=== PATIENT | female | born 1935 | race Caucasian/White ===

== ENCOUNTER 2017-06-21 13:48 | Observation (INO) ==
--- NOTE | 2017-06-21 15:01 | Emergency Department Note ---
Disposition Clinical Impression: Dyspnea Disposition: Home, Self-Care Condition: Good Referrals: Isaac Banegas MD [Primary Care Provider] - Forms: ED Satisfaction Letter SOB HPI - General Chief Complaint: ED Shortness of Breath/Dyspnea Stated Complaint: SOB Time Seen by Provider: 06/21/17 14:46 Source: patient, family Limitations: no limitations Nursing Notes Reviewed: Yes Vital Signs Reviewed: Yes - History of Present Illness Mrs. Jones, an 81yo female, presents from home by POV for evaluation of dyspnea. Patient was at a retinal specialist this morning and was dyspneic and hypertensive. Specialist recommended she present to the emergency department by squad. Patient drove herself home. She then called her primary care physician, Dr. Tellez, who recommended she present to the emergency department for continued evaluation. Patient's symptoms of dyspnea and bilateral lower extremity swelling have been progressive for the past 2-4 weeks. During this time, her atenolol and diuretic have been reduced by her PCP secondary to suspected hypotension. Patient also notes intense self-resolved left calf pain this morning. ROS: Positive: Dyspnea, bilateral lower extremity swelling Negative: Fever, chills, nausea, vomiting, weakness, cough, chest pains, palpitations, back pains, confusion. History of long-term tobacco smoking. Quit September 2016. No home oxygen use. No home metered-dose inhaler or nebulizer. - Related Data Home Medications Medication Instructions Recorded Confirmed ALPRAZolam [Xanax 0.5 MG Tablet] 0.5 mg PO TID 09/04/15 09/04/15 Albuterol Sulfate [Ventolin Hfa] 2 puff IH Q4H 09/04/15 09/04/15 Aspirin 325 mg PO DAILY 09/04/15 09/04/15 Atenolol [Tenormin] 25 mg PO DAILY 09/04/15 09/04/15 Brimonidine 0.2% [Alphagan] 1 drop BOTH EYES BID 09/04/15 09/04/15 Cholecalciferol (Vitamin D3) 2,000 unit PO DAILY 09/04/15 09/04/15 [Vitamin D] Cyclobenzaprine [Flexeril] 10 mg PO TID 09/04/15 09/04/15 Dorzolamide/Timolol [Cosopt] 1 drop LEFT EYE BID 09/04/15 09/04/15 Fluconazole [Diflucan] 150 mg PO 2XW 09/04/15 09/04/15 L. Acidophilus/Pectin, [place] 300 mg PO DAILY 09/04/15 09/04/15 [Acidophilus Probiotic Capsule] Latanoprost [Xalatan] 1 drop BOTH EYES HS 09/04/15 09/04/15 Methenamine Hippurate [Hiprex] 1 gm PO DAILY 09/04/15 09/04/15 Nitrofurantoin [Macrodantin] 50 mg PO HS 09/04/15 09/04/15 Omeprazole [PriLOSEC] 20 mg PO DAILY 09/04/15 09/04/15 Simvastatin [Zocor] 20 mg PO HS 09/04/15 09/04/15 Allergies Allergy/AdvReac Type Severity Reaction Status Date / Time Sulfa (Sulfonamide Allergy Hives Verified 06/21/17 13:57 Antibiotics) Penicillins AdvReac Redness of Verified 06/21/17 13:57 Skin prednisone AdvReac Watery Eye Verified 06/21/17 13:57 All systems ED: reviewed and negative except as stated. Past Medical History - Past Medical History Medical history: Reports: COPD Surgical history: Reports: appendectomy, cholecystectomy, hysterectomy Psychiatric history: Reports: no psych history - Social History Smoking Status: Current every day smoker Smokeless Tobacco Status: No Alcohol use: Reports: rarely Drug use: Reports: none Physical Exam Vital Signs Reviewed General: Patient is alert, oriented, and in no acute distress. HEENT: No facial asymmetry. Head is normocephalic and atraumatic. PERRLA. Nasal turbinates moist and pink. Posterior pharynx without exudates or cobblestoning. Cardiovascular: Heart regular rate and rhythm without clicks, rubs, gallops, or murmurs. No JVD. PMI nondisplaced. Respiratory: Symmetric chest rise with good respiratory effort. Decreased breath sounds right lower lobe and right middle lobe. Left-sided breath sounds clear without wheezes, rales, or rhonchi. Abdomen: Bowel sounds present normoactive x-4 quadrants. Abdomen is soft, nondistended, and nontender. No organomegaly noted. Psych: Patient's affect is appropriate for situation. - General Limitations: no limitations General appearance: alert Course Course Narrative: Clinical concern is for pneumonia versus congestive heart failure versus possible PE. We will IV fluid hydrate and CTA chest. Chest x-ray unremarkable. CTA shows no PE and no pneumonia; suspicious for inflammatory bronchiolitis. Serum hematology is unremarkable. Serum chemistry shows mild hypernatremia of 146, mild hypercalcemia of 112. Creatinine is elevated at 1.24 which is consistent with her chronic baseline. BNP is 249 which, no elevated, is nondiagnostic for congestive heart failure. Patient does not have clinical pulmonary edema. Discussed admission with the patient for exertional dyspnea (as an anginal equivalent). 17:55 Hospitalist recommending ABG and albuterol prior to his consideration for admission. Chest X-Ray 06/21/17 13:57 IMPRESSION: 1. No acute cardiopulmonary disease. 2. COPD. D/ / Bimal Plunkett MD / Bimal Plunkett MD Interpreting Provider: Bimal Plunkett MD Chest CTA 06/21/17 15:04 IMPRESSION: 1. No pulmonary embolus is identified. 2. Subtle ground-glass centrilobular nodularity is identified. If the patient is an active smoker, respiratory bronchiolitis may be considered. Otherwise, an infectious or inflammatory bronchiolitis may be the cause. D/ / Javier Gerard / Javier Gerard Interpreting Provider: Javier Gerard Vital Signs Temperature 97.5 F L 06/21/17 13:52 Pulse Rate 66 06/21/17 13:52 Respiratory Rate 20 06/21/17 13:52 Blood Pressure 151/78 06/21/17 13:52 O2 Sat by Pulse Oximetry 99 06/21/17 13:52 Temperature 97.5 F L 06/21/17 13:52 Pulse Rate 66 06/21/17 13:52 Respiratory Rate 20 06/21/17 18:09 Blood Pressure 151/78 06/21/17 13:52 O2 Sat by Pulse Oximetry 99 06/21/17 18:09 Oxygen Delivery Oxygen Delivery Room Air Shortness of Breath/Dyspnea - Medical Records Medical records reviewed: Yes I reviewed the patient's medical records. - Lab Data Lab results reviewed: Yes I reviewed the patient's lab results. Result diagrams: 06/21/17 15:27 06/21/17 15:27 Lab Results 06/21/17 06/21/17 06/21/17 Range/Units 15:27 15:27 15:27 WBC 8.0 (4.3-11.1) K/mcL RBC 4.97 (3.82-4.97) M/mcL Hgb 13.9 (11.5-15.4) g/dL Hct 45.3 H (35.3-44.9) % MCV 91.1 (83.0-100.0) fL MCH 28.0 (28.0-33.3) pg MCHC 30.7 L (31.6-35.5) g/dL RDW 13.6 (11.5-14.5) % Plt Count 214 (140-400) K/mcL MPV 10.6 (9.4-12.4) fL Immature Gran % 0.2 (0-4) % Seg Neutrophils % 71.4 % Lymphocytes % 21.2 % Monocytes % 5.1 % Eosinophils % 1.9 % Basophils % 0.2 % Neutrophils # 5.7 (1.6-8.9) K/mcL Lymphocytes # 1.7 (0.6-4.6) K/mcL Monocytes # 0.4 (0.0-1.3) K/mcL Eosinophils # 0.2 (0.0-0.6) K/mcL Basophils # 0.0 (0.0-0.2) K/mcL ABG pH (7.32-7.45) pH Units ABG pCO2 (35-45) mmHg ABG pO2 (85-104) mmHg ABG HCO3 (21-27) mEQ/L ABG Total CO2 (20-26) mEq/L ABG O2 Saturation (95-98) % ABG Base Excess (-2.0 to 3.0) mEq/L Blood Gas Modality Inspired O2 % Sodium 146 H (136-145) mEq/L Potassium 4.3 (3.5-4.5) mEq/L Chloride 112 H (98-109) mEq/L Carbon Dioxide 26 (19-29) mEq/L BUN 14 (7-20) mg/dL Creatinine 1.24 H (0.57-1.11) mg/dL Est GFR ( Amer) 50 L (> 60) Est GFR (Non-Af Amer) 42 L (> 60) BUN/Creatinine Ratio 11 (6-26) Glucose 82 (70-99) mg/dL Calculated Osmolality 302 H (280-300) Calcium 9.5 (8.6-10.8) mg/dL Troponin I 0.00 (0-0.03) ng/mL B-Natriuretic Peptide (0-100) pg/mL 06/21/17 06/21/17 Range/Units 15:27 18:05 WBC (4.3-11.1) K/mcL RBC (3.82-4.97) M/mcL Hgb (11.5-15.4) g/dL Hct (35.3-44.9) % MCV (83.0-100.0) fL MCH (28.0-33.3) pg MCHC (31.6-35.5) g/dL RDW (11.5-14.5) % Plt Count (140-400) K/mcL MPV (9.4-12.4) fL Immature Gran % (0-4) % Seg Neutrophils % % Lymphocytes % % Monocytes % % Eosinophils % % Basophils % % Neutrophils # (1.6-8.9) K/mcL Lymphocytes # (0.6-4.6) K/mcL Monocytes # (0.0-1.3) K/mcL Eosinophils # (0.0-0.6) K/mcL Basophils # (0.0-0.2) K/mcL ABG pH 7.36 (7.32-7.45) pH Units ABG pCO2 42 (35-45) mmHg ABG pO2 70 L (85-104) mmHg ABG HCO3 23.7 (21-27) mEQ/L ABG Total CO2 25.0 (20-26) mEq/L ABG O2 Saturation 93 L (95-98) % ABG Base Excess -1.7 (-2.0 to 3.0) mEq/L Blood Gas Modality RA Inspired O2 21 % Sodium (136-145) mEq/L Potassium (3.5-4.5) mEq/L Chloride (98-109) mEq/L Carbon Dioxide (19-29) mEq/L BUN (7-20) mg/dL Creatinine (0.57-1.11) mg/dL Est GFR ( Amer) (> 60) Est GFR (Non-Af Amer) (> 60) BUN/Creatinine Ratio (6-26) Glucose (70-99) mg/dL Calculated Osmolality (280-300) Calcium (8.6-10.8) mg/dL Troponin I (0-0.03) ng/mL B-Natriuretic Peptide 249 H (0-100) pg/mL - Radiology Data Radiology results reviewed: Yes I reviewed the patient's radiology results. - EKG Data EKG attestation: Yes I reviewed and interpreted this EKG. EKG results narrative: EKG dated 06/21/17 at 13:59 interpreted as sinus rhythm with rate of 65. Normal intervals. Normal axis. Attestation Statement - Attestation Attestation: I examined this patient and my medical decision-making was reviewed with the Resident Physician. I agree with the documented findings, disposition and treatment plan as described except to the extent set forth below. Patient with exertional dyspnea. Will be admitted for anginal once. EKG shows no acute findings at this time. We will admit for trending of cardiac biomarkers. CT scan of the chest shows non-specific infectious findings. Hospital is requesting "DuoNeb as well as check ABG.
[2017-06-21 15:34] LABS: Basophils % 0.2 %; Eosinophils # 0.2 K/mcL (0.0-0.6); Eosinophils % 1.9 %; Hematocrit 45.3 % (35.3-44.9); Hemoglobin 13.9 g/dL (11.5-15.4); Immature Granulocytes % 0.2 % (0-4); Lymphocytes # 1.7 K/mcL (0.6-4.6); Lymphocytes % 21.2 %; Mean Corpuscular HGB Conc 30.7 g/dL (31.6-35.5); Mean Corpuscular Volume 91.1 fL (83.0-100.0); Mean Platelet Volume 10.6 fL (9.4-12.4); Monocytes # 0.4 K/mcL (0.0-1.3); Monocytes % 5.1 %; Neutrophils # 5.7 K/mcL (1.6-8.9); Platelet Count 214 K/mcL (140-400); Red Blood Count 4.97 M/mcL (3.82-4.97); Red Cell Distribution Width 13.6 % (11.5-14.5); Segmented Neutrophils % 71.4 %
[2017-06-21 15:46] LABS: Calcium 9.5 mg/dL (8.6-10.8); Potassium 4.3 mEq/L (3.5-4.5)
[2017-06-21] MEDS ORDERED: Albuterol 2.5 MG/3 ML NEBULIZER IH ONE (17:55)
[2017-06-21] MEDS ORDERED: Ipratropium/Albuterol Neb 3 ML IH ONE (17:57)
[2017-06-21 18:15] LABS: ABG Base Excess -1.7 mEq/L (-2.0 to 3.0); ABG HCO3 23.7 mEQ/L (21-27); ABG Oxygen Saturation 93 % (95-98); ABG PCO2 42 mmHg (35-45); ABG PH 7.36 pH Units (7.32-7.45); ABG PO2 70 mmHg (85-104)
[2017-06-21 18:17] LABS: Blood Gas FiO2 21 %
--- NOTE | 2017-06-21 23:31 | Internal Med History&Physical ---
Date of Encounter: 06/22/17 Time of Encounter: 23:28 Assessment and Plan (1) Dyspnea Current visit: Yes Status: Acute - CTA: no pulmonary embolism - hypoxia on ABG - on my bedside assessment, O2 sat is 97% at rest - With 40+ PY tobacco use, I suspect COPD as a cause of hypoxia or dyspnea without exacerbation at this time. Considering LE swelling when off of diuretic and long standing hypertension, HF cannot be ruled out completely despite BNP of 249. Also, pulm HTN is also a possibility. - check ambulatory pulse ox - check serial troponin - OP PFTs - IP TTE assess LVEF, diastolic function, r/o pulm HTN Qualifiers: Dyspnea type: shortness of breath Qualified Code(s): R06.02 - Shortness of breath; R06.00 - Dyspnea, unspecified; R06.01 - Orthopnea (2) Hypoxia Current visit: Yes Status: Acute as above (3) HTN (hypertension) Current visit: Yes Status: Acute BP is now high, so will resume HCTZ and increase atenolol to prior dose of 25 mg daily - Resume HCTZ 12.5 mg daily - Increase atenolol back to 25 mg daily - check orthostatic vitals Qualifiers: Hypertension type: essential hypertension Qualified Code(s): I10 - Essential (primary) hypertension Internal Medicine - H&P: HPI Chief complaint: dyspnea Admitted From: Emergency Dept Plans for Post Hospital Care: Home History of present illness: 81W with no diagnosed cardiac or pulmonary probem has presented from eye doctor' s office due to dyspnea, exertional dyspnea and lower extremity swelling of gradual onset for several days. No chest pain, palpitations. Of note, her home atenolol was decreased in half to 12.5 mg daily and HCTZ was stopped recently due to low blood pressure with systolic in 90's by PCP. Occasional headache. Alternating diarrhea and constipation. A 10-point ROS is otherwise negative. PMH: - HTN - IBS - Depression, since losing her son to intracranial hemorrhage due to aneurysm - Glaucoma - CKD3, baseline Cr 1.2 SH: 40+PY of cigarette smoking, currently e-cigarettes Past Med Surg Social Fam HX - Past Medical History Psychiatric history: no psych history - Past Surgical History Surgical History: appendectomy, cholecystectomy, hysterectomy - Social History Smoking Status: Current every day smoker Packs per day: 1 Smokeless Tobacco Status: No Alcohol use: rarely Drug use: none - Family History Mother Living Status: Age at : 63 Cause of : Emphysema Hx Family Cardiac Disorders: Yes Hx Family Respiratory Disorders: Yes (Emphysema) Father Living Status: Age at : 77 Cause of : Kidney failure Hx Family Endocrine Disorder: Yes Son Living Status: Age at : 55 Cause of : Brain Aneurysm Hx Family Cardiac Disorders: Yes (HTN) Internal Medicine - H&P: Meds ALPRAZolam [Xanax 0.5 MG Tablet] 0.5 mg PO TID 09/04/15 [History] Aspirin 325 mg PO DAILY 09/04/15 [History] Atenolol [Tenormin] 25 mg PO DAILY 09/04/15 [History] Brimonidine 0.2% [Alphagan] 1 drop BOTH EYES BID 09/04/15 [History] Cyclobenzaprine [Flexeril] 10 mg PO TID 09/04/15 [History] Dorzolamide/Timolol [Cosopt] 1 drop LEFT EYE BID 09/04/15 [History] Latanoprost [Xalatan] 1 drop BOTH EYES HS 09/04/15 [History] Omeprazole [PriLOSEC] 20 mg PO DAILY 09/04/15 [History] Simvastatin [Zocor] 20 mg PO HS 09/04/15 [History] Estrogens, Conjugated [Premarin Cream] 1 appl VG 2XW 06/21/17 [History] hydroCHLOROthiazide [Hydrochlorothiazide] 12.5 mg PO DAILY 06/21/17 [History] 3 Allergy/AdvReac Type Severity Reaction Status Date / Time Sulfa (Sulfonamide Allergy Hives Verified 06/21/17 13:57 Antibiotics) Penicillins AdvReac Redness of Verified 06/21/17 13:57 Skin prednisone AdvReac Watery Eye Verified 06/21/17 13:57 All Systems PM: A 10-system review of systems was performed and is negative for pertinent findings except as documented above in the HPI. - Constitutional Vitals: Temp Pulse Resp BP Pulse Ox 97.7 F 66 15 156/76 98 06/21/17 23:07 06/21/17 23:07 06/21/17 23:07 06/21/17 23:07 06/21/17 23:07 General appearance: Present: A&O X 3, pleasant, no acute distress - Head Head exam: Present: atraumatic, normocephalic - Eye Eye exam: Present: PERRL, conjuntiva pink, sclera anicteric Pupils: Present: PERRL - Neck Neck exam general surgery: Present: supple, trachea midline. Absent: nuchal rigidity - Respiratory Respiratory exam: Present: CTAB. Absent: accessory muscle use, rales, rhonchi, wheezes - Cardiovascular Cardiovascular exam: Present: RRR, +S1, +S2. Absent: diastolic murmur, gallop, rubs, systolic murmur - GI/Abdominal GI/Abdominal exam: Present: normal bowel sounds, soft, no peritoneal signs. Absent: distended, guarding, rebound, tenderness - Extremities Exam Extremities exam: Present: pedal edema (1+ bilaterally), warm, radial pulses palpable and symmetrical. Absent: calf tenderness, cyanotic - Neurological Exam Neurological exam: Present: CN II-XII intact, oriented X3, no focal deficits. Absent: facial droop, speech deficit - Skin Skin exam: Present: dry, intact, normal color Internal Med - H&P Results - Labs CBC & Chem 7: 06/21/17 15:27 06/21/17 15:27 - EKG Data -: EKG Interpreted by Myself (Sinus 65 bpm, no acute ischemic changes)
[2017-06-22] MEDS ORDERED: Naloxone 0.4 MG/ML INJ IVP PRN (00:08)
[2017-06-22] MEDS ORDERED: Acetaminophen 325 MG TABLET PO PRN (00:08)
[2017-06-22] MEDS: Dorzolamide/Timolol OPTH 10 ML BOTTLE LEFT EYE SCH ×3 (00:39→20:20)
[2017-06-22] MEDS: Latanoprost 2.5 ML BOTTLE BOTH EYES SCH ×2 (00:39→20:30)
--- NOTE | 2017-06-22 01:45 | Event Note ---
Date of Encounter: 06/21/17 Time of Encounter: 23:30 The correct date of my admission H&P encounter is 06/21/17.
[2017-06-22 02:11] LABS: Basophils % 0.2 %; Eosinophils # 0.1 K/mcL (0.0-0.6); Eosinophils % 1.4 %; Hematocrit 35.4 % (35.3-44.9); Immature Granulocytes % 0.3 % (0-4); Lymphocytes # 1.6 K/mcL (0.6-4.6); Lymphocytes % 16.4 %; Mean Corpuscular HGB Conc 31.4 g/dL (31.6-35.5); Mean Corpuscular Volume 89.2 fL (83.0-100.0); Mean Platelet Volume 11.3 fL (9.4-12.4); Monocytes # 0.6 K/mcL (0.0-1.3); Neutrophils # 7.3 K/mcL (1.6-8.9); Platelet Count 202 K/mcL (140-400); Red Blood Count 3.97 M/mcL (3.82-4.97); Red Cell Distribution Width 13.4 % (11.5-14.5); Segmented Neutrophils % 75.7 %
[2017-06-22 02:12] LABS: Hemoglobin 11.1 g/dL (11.5-15.4)
[2017-06-22 02:25] LABS: BUN/Creatinine Ratio 14 (6-26); Blood Urea Nitrogen 14 mg/dL (7-20); Calcium 8.8 mg/dL (8.6-10.8); Carbon Dioxide 24 mEq/L (19-29); Chloride 113 mEq/L (98-109); Glucose 95 mg/dL (70-99); Magnesium 1.7 mg/dL (1.6-2.6); Osmolality,Calculated 294 (280-300); Potassium 3.6 mEq/L (3.5-4.5); Sodium 142 mEq/L (136-145); eGFR For African Americans > 60 (> 60); eGFR For Non-African Americans 55 (> 60)
[2017-06-22] MEDS: hydroCHLOROthiazide 25 MG TABLET PO SCH (08:12)
[2017-06-22] MEDS: ALPRAZolam 0.5 MG TABLET PO SCH ×3 (08:12→20:13)
[2017-06-22] MEDS: Aspirin 325 MG TABLET PO SCH (08:12)
--- NOTE | 2017-06-22 10:31 | Electrocardiograph Report ---
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
--- NOTE | 2017-06-22 16:49 | Internal Med Progress Note ---
Date of Encounter: 06/22/17 Time of Encounter: 14:30 - Assessment and plan (1) Dyspnea Current Visit: Yes Status: Acute Assessment and plan: Pt appears to be mildly dyspneic with conversation. She also reports mild SOB with exertion when walking to the bathroom. Pt is not requiring supplemental 02. She states that she was sent by her technical illustrator for visible dyspnea at his office. Chest Xray is negative, COPD. Chest CTA notes no PE and subtle ground glass nodularity, possible infectious or inflammatory bronchiolitis may be the cause. Echo showed an LVEF of 65-70% with normal systolic function, moderate diastolic dysfunction of the left ventricle, probably mild tricuspid regurgitation, and mild pulmonary hypertension. 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 Qualifiers: Dyspnea type: shortness of breath Qualified Code(s): R06.02 - Shortness of breath; R06.00 - Dyspnea, unspecified; R06.01 - Orthopnea (2) Hypoxia Current Visit: Yes Status: Acute Assessment and plan: Plan as above (3) HTN (hypertension) Current Visit: Yes Status: Chronic Assessment and plan: Patient has been off her medications, resume HCTZ 12.5 mg daily and atenolol 25 mg by mouth daily. 10 use and monitor vital signs. Qualifiers: Hypertension type: essential hypertension Qualified Code(s): I10 - Essential (primary) hypertension (4) DVT prophylaxis Current Visit: Yes Status: Acute Assessment and plan: JOHN dexter and pt is ambulatory. - Time Spent With Patient less than 15 minutes - Subjective Interval history: Pt was seen and assessed at 1430. She denies chest pain, but still appears to be mildly SOB with conversation. She states that she is able to get up and walk , but has dyspnea when she does go to the bathroom. She denies cough or fever, and reports some LE edemea and has been off of her diuretic. She is not requiring supplemental 02 at this time and speaks in long phrases. - Constitutional Vitals: Temp Pulse Resp BP Pulse Ox 97.9 F 66 16 144/71 97 06/22/17 14:59 06/22/17 14:59 06/22/17 14:59 06/22/17 14:59 06/22/17 14:59 General appearance: Present: A&O X 3, pleasant, no acute distress, answers questions appropriately - Head Head exam: Present: atraumatic, normal inspection, normocephalic - Eye Eye exam: Present: normal appearance, conjuntiva pink, sclera anicteric - ENT ENT exam: Present: mucous membranes moist, normal exam, normal external ear exam - Neck Neck exam general surgery: Present: normal inspection, supple, trachea midline. Absent: lymphadenopathy, tenderness - Respiratory Respiratory exam: Present: CTAB. Absent: accessory muscle use, chest wall tenderness, rales, respiratory distress, rhonchi, stridor, wheezes - Cardiovascular Cardiovascular exam: Present: RRR, +S1, +S2. Absent: diastolic murmur, gallop, rubs, systolic murmur - GI/Abdominal GI/Abdominal exam: Present: normal bowel sounds, soft. Absent: distended, hepatomegaly, tenderness - Extremities Exam Extremities exam: Present: normal inspection, warm, radial pulses palpable and symmetrical. Absent: calf tenderness, cyanotic, pedal edema - Neurological Exam Neurological exam: Present: alert, oriented X3, no focal deficits, pronater drift. Absent: facial droop, speech deficit - Skin Skin exam: Present: dry, intact, normal color, warm. Absent: rash Internal Medicine: Result - Labs CBC & Chem 7: 06/22/17 01:23 06/22/17 01:23 Labs: Short CBC 06/22/17 Range/Units 01:23 WBC 9.7 (4.3-11.1) K/mcL Hgb 11.1 L D (11.5-15.4) g/dL Hct 35.4 (35.3-44.9) % Plt Count 202 (140-400) K/mcL Neutrophils # 7.3 (1.6-8.9) K/mcL BMP 06/22/17 01:23 Sodium 142 Potassium 3.6 Chloride 113 H Carbon Dioxide 24 BUN 14 Creatinine 0.98 Glucose 95 Calcium 8.8 Cardiac Enzymes 06/22/17 06/22/17 Range/Units 01:23 07:30 Troponin I 0.00 0.01 (0-0.03) ng/mL - ABG Interpretation ABG results: ABG ABG pH 7.36 pH Units (7.32-7.45) 06/21/17 18:05 ABG pCO2 42 mmHg (35-45) 06/21/17 18:05 ABG pO2 70 mmHg (85-104) L 06/21/17 18:05 ABG O2 Saturation 93 % (95-98) L 06/21/17 18:05 Consult Discharge Plan - Plan Referrals: Roberto Carlos Contreras Jr, MD [Primary Care Provider] -
[2017-06-23 04:59] LABS: Basophils % 0.1 %; Eosinophils # 0.2 K/mcL (0.0-0.6); Eosinophils % 2.5 %; Hematocrit 35.1 % (35.3-44.9); Hemoglobin 11.5 g/dL (11.5-15.4); Immature Granulocytes % 0.4 % (0-4); Immature Platelets 2.7 % (1.1-6.1); Lymphocytes # 1.8 K/mcL (0.6-4.6); Lymphocytes % 25.1 %; Mean Corpuscular HGB Conc 32.8 g/dL (31.6-35.5); Mean Corpuscular Hemoglobin 28.9 pg (28.0-33.3); Mean Corpuscular Volume 88.2 fL (83.0-100.0); Mean Platelet Volume 11.3 fL (9.4-12.4); Monocytes # 0.4 K/mcL (0.0-1.3); Monocytes % 5.8 %; Neutrophils # 4.7 K/mcL (1.6-8.9); Platelet Count 188 K/mcL (140-400); Red Blood Count 3.98 M/mcL (3.82-4.97); Red Cell Distribution Width 13.6 % (11.5-14.5); Segmented Neutrophils % 66.1 %
[2017-06-23 05:30] LABS: Calcium 8.8 mg/dL (8.6-10.8); Potassium 3.7 mEq/L (3.5-4.5)
[2017-06-23] MEDS: hydroCHLOROthiazide 25 MG TABLET PO SCH (10:52)
[2017-06-23] MEDS: ALPRAZolam 0.5 MG TABLET PO SCH (10:52)
[2017-06-23] MEDS: Aspirin 325 MG TABLET PO SCH (10:52)
[2017-06-23] MEDS: Dorzolamide/Timolol OPTH 10 ML BOTTLE LEFT EYE SCH (10:55)
[2017-06-23 10:58] VITALS: BP 145/74
--- NOTE | 2017-06-23 11:08 | Discharge Summary ---
Date of Encounter: 06/23/17 Time of Encounter: 08:40 - Discharge Diagnosis (1) Dyspnea Priority: Primary Status: Resolved Comments: Pt denies SOB and there is no MONTEIRO today. Lungs are clear in all anterior and posterior fairchild. CTA negative for PE or acute process. COPD on CXR. Echo with LVEF 65-70% with normal systolic dysfunction, moderate LVDD, mild TR and mild pulmonary HTN. Most likely due to COPD changes, no exacerbation at this time. Troponins were negative and pt denies chest pain. Pt did not qualify for 02. Qualifiers: Dyspnea type: shortness of breath Qualified Code(s): R06.02 - Shortness of breath; R06.00 - Dyspnea, unspecified; R06.01 - Orthopnea (2) Hypoxia Priority: Secondary Status: Acute Comments: Hypoxia on ABG. Pt sats well and did not qualify for 02. COPD. Pt will follow up with respiratory for PFT's. (3) HTN (hypertension) Priority: Secondary Status: Chronic Comments: Well controlled and at her baseline. Continue home medication. 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 Plan as above. Pt uses an e-cigarette and states that she is going to quit using it. Qualifiers: Emphysema type: centrilobular Qualified Code(s): J43.2 - Centrilobular emphysema (5) DVT prophylaxis Priority: Secondary Status: Acute Comments: JOHN dexter and pt is ambulatory. (6) Tobacco abuse Priority: Secondary Status: Chronic Comments: Pt has smoked 1 PPD for 40+ years and is currently using and e-cigarette. Pt states that she is trying to quit and does not require any patches, medications , or tools. - Discharge Medications Home Medications: ALPRAZolam [Xanax 0.5 MG Tablet] 0.5 mg PO TID 09/04/15 [History] Aspirin 325 mg PO DAILY 09/04/15 [History] Atenolol [Tenormin] 25 mg PO DAILY 09/04/15 [History] Brimonidine 0.2% [Alphagan] 1 drop BOTH EYES BID 09/04/15 [History] Cyclobenzaprine [Flexeril] 10 mg PO TID 09/04/15 [History] Dorzolamide/Timolol [Cosopt] 1 drop LEFT EYE BID 09/04/15 [History] Latanoprost [Xalatan] 1 drop BOTH EYES HS 09/04/15 [History] Omeprazole [PriLOSEC] 20 mg PO DAILY 09/04/15 [History] Simvastatin [Zocor] 20 mg PO HS 09/04/15 [History] Estrogens, Conjugated [Premarin Cream] 1 appl VG 2XW 06/21/17 [History] hydroCHLOROthiazide [Hydrochlorothiazide] 12.5 mg PO DAILY 06/21/17 [History] Allergies/Adverse Reactions: 3 Allergy/AdvReac Type Severity Reaction Status Date / Time Sulfa (Sulfonamide Allergy Hives Verified 06/21/17 13:57 Antibiotics) Penicillins AdvReac Redness of Verified 06/21/17 13:57 Skin prednisone AdvReac Watery Eye Verified 06/21/17 13:57 Procedures/tests Complete & Pending: Procedures Performed prior 72 hours Category Date Time Status ECG 12 lead ECG [ECG] AM 0600 Y 06/22/17 06:00 Ordered EV echocardiogram Routine Y 06/22/17 00:12 Completed Date of admission: 06/21/17 19:49 Primary care physician: Roberto Carlos Contreras Jr, MD Consults: 06/21/17 22:45 Consult to Contact Assembler [CONS] Routine Reason for SW Consult: Insurance concern Discharging clinician: Ann Payton Anticipated date of discharge: 06/23/17 - Patient Status Disposition: Home, Self-Care Functional capacity at discharge: independent ambulation Overall status at discharge: patient is back to baseline - Discharge Instructions Follow Up With: Roberto Carlos Contreras Jr, MD [Primary Care Provider] - Additional Instructions: Follow up with Dr. Contreras in 7-10 days for a follow up visit. REturn to the ER as needed for any other problems or concerns, or if your symptoms return or worsen. Resume your normal home medications and activities as tolerated. - Diet and Activity Activity: increase activity as tolerated Diet: advance to your usual diet Hospital course: Ms. Jones is a 81 year old female with pmh of HTN, tobacco use. Pt was at her fagoter yesterday and was sent to ER for evaluation of dyspnea, MONTEIRO and LE edema. Pt denies chest pain, palpitations. She had had recent antihypertensive medication changes, which perhaps caused the edema. Pt was mildly dyspneic with conversation yesterday, however, today she has none and is not having any dyspnea with exertion walking in room, to and from bathroom. No peripheral edema. Lungs are clear. Pt has a 40+ year history of smoking and is currently using an e-cigarette and is trying to quit using that, as well. Pt had an echo yesterday, LVEF 65-70%, normal systolic function, moderate LVDD, probably mild TR and mild pulmonary HTN. Xray showed COPD, and CT chest showed centrilobar emphysematous changes. Troponins were negative, BNP mildly elevated at 249. Pt denies renal disease, SR Cr 1.18 and GFR 44, appears to be chronically elevated and at baseline. SOB was most likely due to COPD changes, no acute exacerbation at this time. Pt did not qualify for home 02. Pt lives at home and cares for herself well and does not have any needs for home health. Vitals are stable and WNL. Pt will continue home medications and will resume her HCTZ at 12. 5mg po daily and Atenolol 25mg po daily. Pt is ready for discharge. Time spent discussing smoking cessation with patient: 3 to 10 minutes - Time Spent with Patient Total time spent providing and/or coordinating discharge services: Less than 30 minutes - Constitutional Vitals: Temp Pulse Resp BP Pulse Ox 97.6 F 68 16 145/74 98 06/23/17 10:56 06/23/17 10:56 06/23/17 10:56 06/23/17 10:56 06/23/17 10:56 General appearance: Present: cooperative, A&O X 3, pleasant, no acute distress, answers questions appropriately - Head Head exam: Present: atraumatic, normal inspection, normocephalic - Eye Eye exam: Present: normal appearance, conjuntiva pink - ENT ENT exam: Present: mucous membranes moist, normal exam, normal external ear exam - Neck Neck exam general surgery: Present: normal inspection. Absent: lymphadenopathy , tenderness - Respiratory Respiratory exam: Present: CTAB. Absent: chest wall tenderness, decreased breath sounds, rales, respiratory distress, rhonchi, stridor, wheezes - Cardiovascular Cardiovascular exam: Present: RRR, +S1, +S2. Absent: clicks, diastolic murmur, gallop, systolic murmur - GI/Abdominal GI/Abdominal exam: Present: normal bowel sounds, soft. Absent: distended, hepatomegaly, tenderness - Extremities Exam Extremities exam: Present: normal capillary refill, normal inspection, warm, radial pulses palpable and symmetrical. Absent: pedal edema, tenderness - Neurological Exam Neurological exam: Present: alert, normal gait, oriented X3. Absent: facial droop, speech deficit - Skin Skin exam: Present: dry, intact, normal color, warm. Absent: rash
== END 2017-06-23 13:20 | disposition home or self-care (01) ==
LOC: 3BNU 13:48 → EMEROO 13:48 → 3BNU 20:12
PROVIDERS: ADMIT Internal Medicine; ATTEND Registered Nurse

== ENCOUNTER 2019-01-21 10:40 | Observation (INO) ==
[2019-01-21] MEDS ORDERED: *HR* Succinylcholine 200 MG/10 ML VIAL IVP ONE (10:42)
[2019-01-21] MEDS ORDERED: Ondansetron 4 MG/2 ML VIAL ONE (10:42)
[2019-01-21] MEDS ORDERED: Lidocaine -MPF 2% 2 ML VIAL ONE (10:42)
[2019-01-21] MEDS ORDERED: *HR* Propofol 200 MG/20 ML VIAL IVP ONE (10:42)
[2019-01-21] MEDS ORDERED: Lidocaine -MPF 4% 5 ML AMPUL ONE (10:45)
[2019-01-21] MEDS ORDERED: Ondansetron 4 MG/2 ML VIAL IVP ONE (11:00)
[2019-01-21] MEDS ORDERED: 0.9 % Sodium Chloride 1,000 ML IVC ONE (11:00)
[2019-01-21] MEDS ORDERED: *HR* FentaNYL (PF) 100 MCG/2 ML VIAL IVP ONE (11:00)
--- NOTE | 2019-01-21 11:04 | Emergency Department Note ---
Disposition Clinical Impression: Esophageal obstruction due to food impaction Disposition: Home, Self-Care Condition: Good Reasons to Return/Additional Instructions: Discharge to GI endo suite Referrals: NONE,PCP [Primary Care Provider] - Forms: ED Satisfaction Letter, Work/School Release Time of Disposition: 11:12 General Adult HPI - General Chief complaint: ED General Medical Stated complaint: FB Time Seen by Provider: 01/21/19 10:43 Source: patient Limitations: no limitations Nursing Notes Reviewed: Yes Vital Signs Reviewed: Yes - History of Present Illness HPI Narrative: 83 year old female presents to the ED with complaits of food bolus in the throat which she believes is a pork chop. paitnet states that this is afirst time occurance and she believes that is happened around noon yeserday and was able to vomit up one little sliver.Patinet states that she has known hiatal hernia from an endocscopy that she had years ago and she is not on anticoag aside from a baby asa daily. Patinet states taht she is not able eto toerlate her solid, liquids or saliva today. Patient states she feels it is stuck in the epigastrium and that it brian when she treid to eat jello and [place] both of which did not stay down. Pain Scale: 10 - Related Data Home Medications Medication Instructions Recorded Confirmed ALPRAZolam [Xanax 0.5 MG Tablet] 0.5 mg PO TID 09/04/15 12/16/18 Aspirin 325 mg PO DAILY 09/04/15 12/16/18 Atenolol [Tenormin] 25 mg PO DAILY 09/04/15 12/16/18 Brimonidine 0.2% [Alphagan] 1 drop BOTH EYES BID 09/04/15 12/16/18 Cyclobenzaprine [Flexeril] 10 mg PO TID 09/04/15 12/16/18 Dorzolamide/Timolol [Cosopt] 1 drop LEFT EYE BID 09/04/15 12/16/18 Latanoprost [Xalatan] 1 drop BOTH EYES HS 09/04/15 12/16/18 Omeprazole [PriLOSEC] 20 mg PO DAILY 09/04/15 12/16/18 Simvastatin [Zocor] 20 mg PO HS 11/12/15 02/23/19 Estrogens, Conjugated [Premarin 1 appl VG 2XW 06/21/17 12/16/18 Cream] hydroCHLOROthiazide 12.5 mg PO DAILY 06/21/17 12/16/18 [Hydrochlorothiazide] Previous Rx's Medication Instructions Recorded Cetirizine HCl [Zyrtec] 10 mg PO DAILY #4 capsule 04/29/18 Allergies Allergy/AdvReac Type Severity Reaction Status Date / Time Sulfa (Sulfonamide Allergy Hives Verified 12/16/18 10:09 Antibiotics) Penicillins AdvReac Redness of Verified 12/16/18 10:09 Skin prednisone AdvReac Watery Eye Verified 12/16/18 10:09 Constitutional: Denies: fever, chills, weakness, weight change Eyes: Denies: eye pain, eye discharge, vision change ENT ED: Denies: ear pain, throat pain, dental pain, hearing loss, epistaxis, congestion, dysphagia Cardiovascular: Reports: chest pain. Denies: palpitations, dyspnea on exertion, edema, syncope Respiratory: Denies: cough, dyspnea, wheezes, hemoptysis, stridor Gastrointestinal: Reports: abdominal pain, nausea, vomiting. Denies: diarrhea, constipation, hematemesis, melena, hematochezia Genitourinary: Denies: dysuria, frequency, hematuria, discharge Musculoskeletal: Denies: back pain, neck pain, arthralgia, myalgia Integumentary: Denies: rash, abrasion, lesions Neurological: Denies: headache, weakness, numbness, paresthesias, confusion, abnormal gait, vertigo Psychiatric: Denies: anxiety, depression, suicidal thoughts, homicidal thoughts, auditory hallucinations, visual hallucinations Endocrine: Denies: fatigue Hematological/Lymphatic: Denies: easy bleeding, easy bruising Allergic/Immunologic: Denies: facial swelling, urticaria Past Medical History - Past Medical History Medical history: Reports: COPD, hypertension Surgical history: Reports: appendectomy, cholecystectomy, hysterectomy Psychiatric history: Reports: no psych history - Social History Smoking Status: Current every day smoker Smokeless Tobacco Status: No Alcohol use: Reports: none Drug use: Reports: none Physical Exam - General Limitations: no limitations General appearance: alert, in no apparent distress - Head Head exam: atraumatic, normocephalic, normal inspection - Eye Eye exam: Present: normal appearance, PERRL, EOMI - Expanded Eye Exam Pupils: Bilateral: reactive - ENT ENT exam: normal exam, normal oropharynx, mucous membranes moist - Expanded ENT Exam External ear exam: Present: normal external inspection Mouth exam: Present: normal external inspection Teeth exam: Present: normal inspection Throat exam: Present: normal inspection - Neck Neck exam: Present: normal inspection, full ROM, trachea midline - Chest Chest inspection: Present: normal inspection, symmetric chest wall rise - Respiratory Respiratory exam: Present: normal lung sounds bilaterally - Cardiovascular Cardiovascular exam: Present: regular rate, normal rhythm, normal heart sounds - Abdominal Exam Abdominal exam: Present: soft, Non-Tender. Absent: tenderness, distention, guarding, rebound, rigidity - Extremities Exam Extremities exam: Present: normal inspection, full ROM. Absent: tenderness, pedal edema - Expanded Upper Extremity Exam Shoulder exam: Present: normal inspection, full ROM Arm exam: Present: normal inspection, full ROM Elbow exam: Present: normal inspection, full ROM Forearm/Wrist exam: Present: normal inspection, full ROM Hand exam: Present: normal inspection, full ROM Vascular exam: Normal: capillary refill, radial pulse - Expanded Lower Extremity Exam Hip/Pelvis exam: Present: normal inspection, full ROM Upper leg exam: Present: normal inspection, full ROM Knee exam: Present: normal inspection, full ROM Lower leg exam: Present: normal inspection, full ROM Ankle exam: Present: normal inspection, full ROM Foot/toe exam: Present: normal inspection, full ROM Neurovascular/Tendon exam: Absent: motor deficit, sensory deficit, tendon deficit - Back Exam Back exam: Present: normal inspection, full ROM. Absent: tenderness - Neurological Exam Neurological exam: Present: alert, oriented X3 - Expanded Neurological Exam Patient oriented to: Present: person, place, time Coma Scale Eye Opening: Spontaneous Coma Scale Motor Response: Obeys Commands Coma Scale Verbal Response: Oriented Coma Scale Total: 15 - Psychiatric Psychiatric exam: Present: normal affect, normal mood - Skin Skin exam: Present: warm, dry, intact, normal color Course Course Narrative: I will consult wit Dr. Marin. Valerie will have cxr and ekg as precautionary measure secondary to complaints f chest pain - Consultations Consultation #1: discussed case with Dr. Marin and he will take valerie back to the GI suite now. Keep NPO Time: 11:04 Vital Signs Temperature 97.4 F L 01/21/19 10:43 Pulse Rate 77 01/21/19 10:43 Respiratory Rate 14 01/21/19 10:43 Blood Pressure 145/80 01/21/19 10:43 O2 Sat by Pulse Oximetry 90 01/21/19 10:43 Temperature 97.4 F L 01/21/19 10:43 Pulse Rate 70 01/21/19 11:18 Respiratory Rate 16 01/21/19 11:18 Blood Pressure 112/69 01/21/19 11:18 O2 Sat by Pulse Oximetry 100 01/21/19 11:18 Oxygen Delivery Oxygen Delivery Room Air Medical Decision Making - Medical Records Medical records reviewed: Yes I reviewed the patient's medical records. - Lab Data Lab results reviewed: Yes I reviewed the patient's lab results. - Radiology Data Radiology results reviewed: Yes I reviewed the patient's radiology results. - EKG Data EKG #1 EKG attestation: Yes I reviewed and interpreted this EKG. EKG results narrative: NSR with rate of 70. NO STEMI. normla intervals no chage from 06/21/17. 1111
[2019-01-21] MEDS ORDERED: Propofol 500 MG/50 ML INFUS..BTL ONE ×2 (11:45→12:35)
[2019-01-21] MEDS ORDERED: Dexamethasone 4 MG/ML VIAL ONE ×2 (11:58→12:48)
[2019-01-21] MEDS ORDERED: *HR* PHENYLEPHRINE 1,000 MCG/10 ML SYRINGE IVP ONE (12:02)
--- NOTE | 2019-01-21 12:17 | Anesthesia Evaluation PreOp ---
Date of Encounter: 01/21/19 Time of Encounter: 12:30 - Past History Planned Operation: EGD Food Bolus Removal Cardiac History: HTN, Hyperlipidemia Pulmonary History: Smoker, COPD [employer]PER[employer]OR History: Denies Any Significant HX Other Medical History: Denies Any Significant HX Anesthesia History: No Prior Anesthetic Complications : No Test: Negative Alcohol Use: none Drug use: none Medications and Allergies ALPRAZolam [Xanax 0.5 MG Tablet] 0.5 mg PO TID 09/04/15 [History] Aspirin 325 mg PO DAILY 09/04/15 [History] Atenolol [Tenormin] 25 mg PO DAILY 09/04/15 [History] Brimonidine 0.2% [Alphagan] 1 drop BOTH EYES BID 09/04/15 [History] Cyclobenzaprine [Flexeril] 10 mg PO TID 09/04/15 [History] Dorzolamide/Timolol [Cosopt] 1 drop LEFT EYE BID 09/04/15 [History] Latanoprost [Xalatan] 1 drop BOTH EYES HS 09/04/15 [History] Omeprazole [PriLOSEC] 20 mg PO DAILY 09/04/15 [History] Simvastatin [Zocor] 20 mg PO HS 09/04/15 [History] Estrogens, Conjugated [Premarin Cream] 1 appl VG 2XW 06/21/17 [History] hydroCHLOROthiazide [Hydrochlorothiazide] 12.5 mg PO DAILY 06/21/17 [History] Cetirizine HCl [Zyrtec] 10 mg PO DAILY #4 capsule 04/29/18 [Rx] Allergy/AdvReac Type Severity Reaction Status Date / Time Sulfa (Sulfonamide Allergy Hives Verified 12/16/18 10:09 Antibiotics) Penicillins AdvReac Redness of Verified 12/16/18 10:09 Skin prednisone AdvReac Watery Eye Verified 12/16/18 10:09 - Meds/Allergy Pre-op Review Medications Reviewed: Yes Allergies Reviewed: Yes Beta Blockers on Current Med List: No Anesthesia Results - Labs Laboratory Tests 06/23/17 06/23/17 04:12 04:12 Hgb 11.5 Hct 35.1 L Plt Count 188 Sodium 141 Potassium 3.7 BUN 17 Creatinine 1.18 H - Imaging EKG: report reviewed (SR) Additional studies: ECHO EF 65%, mild pulm htn Anesthesia Exam O2 Sat Height 1.73 m Weight 63.321 kg O2 Sat by Pulse Oximetry 100 O2 Sat by Pulse Oximetry 90 Vital Signs Temp Pulse Resp BP Pulse Ox 97.4 F L 77 14 145/80 90 01/21/19 10:43 01/21/19 10:43 01/21/19 10:43 01/21/19 10:43 01/21/19 10:43 Height: 5'8 Weight: 139 lbs NPO (# of Hours): MN Pain Scale: 0 - HEENT Pupil (Motor): Pupils equal, EOMI Mallampati: II Teeth: Normal Oral Opening: Greater than 3 - HOSPITAL[employer]SE SUPERVISOR LOC: Oriented [employer]PER[employer]OR Motor: Normal RUE, Normal LUE, Normal RLE, Normal LLE, Normal Face [employer] Sensory: Normal: RUE, LUE, RLE, LLE, Face - Cardiac Rhythm: Regular Murmur: None JVD: No Carotid Bruit: No - Pulmonary Breath Sounds: bilateral Clear Respiratory Effort: Symmetrical Anesthesia Assess/Plan ASA Score: 3 (HTN COPD) Level of consciousness: Cooperative, Oriented Anesthetic Plan: General Autologous Blood: No Monitoring Plan: Standard Monitors Recovery Plan: PACU (Discussed GA, agrees to proceed)
[2019-01-21] MEDS ORDERED: Albuterol 2.5 MG/3 ML NEBULIZER IH ONE (12:19)
[2019-01-21] MEDS ORDERED: Albuterol 2.5 MG/3 ML NEBULIZER ONE (12:25)
--- NOTE | 2019-01-21 12:53 | Gastroenterology Consult Note ---
Date of Encounter: 01/21/19 Time of Encounter: 13:00 - Assessment and plan (1) Esophageal obstruction due to food impaction Current Visit: Yes Status: Acute Assessment and plan: Patient will have an urgent EGD done with the disimpaction of the food with anesthesia assistance - Time Spent With Patient Total time spent is greater than 50% in coordination of care (as documented) at patient's floor/unit and/or counseling patient: GI History of Present Illness - Data of Consult Consult date: 01/21/19 - Consult Narrative History of present illness: 83 year old female presents to the ED with complaits of food bolus/pork chop in the throat since yesterday known time not able to swallow any food and she is constantly spitting her saliva. Denies any chest pain does has mild shortness of breath due to underlying history of COPD. Denies any fever or chills but does. No similar previous episode. Not on any blood thinner Past Med Surg Social Fam HX - Past Medical History Medical history: COPD, hypertension Additional medical history: IBS Psychiatric history: no psych history - Past Surgical History Surgical History: appendectomy, cholecystectomy, hysterectomy Additional surgical history: Bladder mesh procedure - Social History Smoking Status: Current every day smoker Smokeless Tobacco Status: No Alcohol use: none Drug use: none - Family History Mother Living Status: Hx Family Cardiac Disorders: Yes Hx Family Respiratory Disorders: Yes (Emphysema) Father Living Status: Hx Family Endocrine Disorder: Yes Son Living Status: Hx Family Cardiac Disorders: Yes (HTN) ROS unobtainable: due to endotracheal tube Review of Systems: GI: as per [place] GENERAL: denies fever, has some chills EYES: denies yellow discoloration ENT: denies pain with swallowing or difficulty swallowing CARDIO: denies chest pain, palpitations RESP: No Shortness of breath with exertion : denies change in color of urine NEURO: denies any weakness HEME: Denies any bruising MS: denies joint pain, joint swelling or back pain. DERM: denies rash or itching PSYCH: Denies history of anxiety or depression - Constitutional Vitals: Temp Pulse Resp BP Pulse Ox 97.4 F L 70 16 112/69 100 01/21/19 10:43 01/21/19 11:18 01/21/19 11:18 01/21/19 11:18 01/21/19 11:18 Exam: CONSTITUTIONAL:alert, no acute distress.HEAD:normocephalic.EYES:no jaundice.NECK:no obvious swelling.HEART:regular rate and rhythm, no murmurs.LUNGS:bilateral good air entry.ABDOMEN:non distended, soft, non tander, no masses pulpable, no organomegaly.RECTAL EXAM:Deferred.EXTREMITIES:no clubbing, cyanosis or edema.SKIN:no stigmata of chronic liver disease.NEUROLOGIC:no obvious focal defect. Results - Impressions Impressions Chest X-Ray 01/21/19 11:00 IMPRESSION: Unchanged appearance of the chest without acute airspace disease identified. D/ / Terence Pemberton / Terence Pemberton Interpreting Provider: Terence Pemberton Consult Discharge Plan - Plan Additional Instructions: Discharge to GI endo suite Referrals: NONE,PCP [Primary Care Provider] -
--- NOTE | 2019-01-21 14:43 | Anesthesia Evaluation Post Op ---
Date of Encounter: 01/21/19 Time of Encounter: 14:45 - Vital Signs Vital Signs: Vital Signs/O2 Sat/Glucose, Most Current Temp Pulse Resp BP Pulse Ox 01/21/19 14:35 97.7 F 69 18 100/53 100 01/21/19 14:25 68 18 90/69 99 01/21/19 14:15 69 16 110/60 100 01/21/19 14:05 98.0 F 74 16 105/51 100 01/21/19 12:57 69 16 112/69 100 01/21/19 11:18 70 16 112/69 100 01/21/19 10:43 97.4 F L 77 14 145/80 90 - Lungs Lungs: Clear Ascult./Percussion - Airway Airway: Non-obstructed - Cardiovascular Regular Rate - Mental Status Mental Status: Alert & Oriented, Answers Appropriately - Pain Pain Scale: 0 - Nausea Vomiting Nausea Vomiting: Not Present - Hydration Hydration: NPO - Discharge PostOp Status: Transfer Patient to floor
[2019-01-21] MEDS ORDERED: Naloxone 0.4 MG/ML INJ IVP PRN (14:45)
[2019-01-21] MEDS ORDERED: Ondansetron 4 MG/2 ML VIAL IVP PRN (14:45)
--- NOTE | 2019-01-21 15:34 | Internal Med History&Physical ---
Date of Encounter: 01/21/19 Time of Encounter: 15:05 Internal Medicine - H&P: HPI Chief complaint: porkchop stuck in throat Admitted From: Intrahospital Transfer Plans for Post Hospital Care: Home History of present illness: Ms. Jones is a 83 year old female past history of hypertension COPD on 2 L nasal cannula as needed recurrent UTIs straight cast 2 times a day due to inability to empty her bladder hiatal hernia current smoker. Patient states that around noon yesterday she was eating a pork chop became lodged in her throat and she was unable to swallow. She attempted to force it down with water however a meal he vomited this back up. She was unable to tolerate any oral intake and was unable to even swallow her saliva. She states this has never happened before however she has had multiple EGDs in the past and she knows that she does have a hiatal hernia. Denies any past episodes of difficulty swallowing or choking She denies any chest pain she has chronic shortness of breath due to COPD. She presented to [facility] ED with the above complaints-chest x-ray without acute airspace disease GI was consult it and patient underwent urgent EGD. A large food bolus was removed from the middle and lower third of the esophagus completely blocking the esophagus. Removal was successful normal mucosa was found to be entire esophagus small hiatal hernia. GI recommending daily PPI 20 mg a day for one week and follow-up with GI as outpatient. Will be admitted to observation unit and monitored postop once gag reflex is return the patient is able tolerate clear liquids and then soft foods, as well as stable vital signs she can be discharged home and follow-up with GI as outpatient. Currently she does not appear to be in any distress and vital signs are stable at this time I did discuss treatment plan with the patient who verbalized understanding Past Med Surg Social Fam HX - Past Medical History Medical history: COPD, hypertension Additional medical history: IBS Psychiatric history: no psych history - Past Surgical History Surgical History: appendectomy, cholecystectomy, hysterectomy Additional surgical history: Bladder mesh procedure - Social History Smoking Status: Current every day smoker Smokeless Tobacco Status: No Alcohol use: none Drug use: none - Family History Mother Living Status: Hx Family Cardiac Disorders: Yes Hx Family Respiratory Disorders: Yes (Emphysema) Father Living Status: Hx Family Endocrine Disorder: Yes Son Living Status: Hx Family Cardiac Disorders: Yes (HTN) Internal Medicine - H&P: Meds ALPRAZolam [Xanax 0.5 MG Tablet] 0.5 mg PO TID 09/04/15 [History] Aspirin 325 mg PO DAILY 09/04/15 [History] Atenolol [Tenormin] 25 mg PO DAILY 09/04/15 [History] Brimonidine 0.2% [Alphagan] 1 drop BOTH EYES BID 09/04/15 [History] Cyclobenzaprine [Flexeril] 10 mg PO TID 09/04/15 [History] Dorzolamide/Timolol [Cosopt] 1 drop LEFT EYE BID 09/04/15 [History] Latanoprost [Xalatan] 1 drop BOTH EYES HS 09/04/15 [History] Omeprazole [PriLOSEC] 20 mg PO DAILY 09/04/15 [History] Simvastatin [Zocor] 20 mg PO HS 09/04/15 [History] Estrogens, Conjugated [Premarin Cream] 1 appl VG 2XW 06/21/17 [History] hydroCHLOROthiazide [Hydrochlorothiazide] 12.5 mg PO DAILY 06/21/17 [History] Cetirizine HCl [Zyrtec] 10 mg PO DAILY #4 capsule 04/29/18 [Rx] Allergy/AdvReac Type Severity Reaction Status Date / Time Sulfa (Sulfonamide Allergy Hives Verified 12/16/18 10:09 Antibiotics) Penicillins AdvReac Redness of Verified 12/16/18 10:09 Skin prednisone AdvReac Watery Eye Verified 12/16/18 10:09 All Systems PM: A 10-system review of systems was performed and is negative for pertinent findings except as documented above in the HPI. - Constitutional Constitutional: no chills, no fever(s), no night sweats - EENT Eyes: no change in vision, no discharge, no pain, no photophobia Ears: no ear discharge, no ear pain, no tinnitus Nose, mouth and throat: no dysphagia, no nasal discharge, no neck pain, no sore throat - Cardiovascular Cardiovascular ROS IM: no chest pain, no diaphoresis, no dyspnea, no lightheadedness, no palpitations, no syncope - Respiratory Respiratory: no cough, no dyspnea, no wheezing, no excessive phlegm production - Gastrointestinal Gastrointestinal: no abdominal pain, no diarrhea, no hematemesis, no hematochezia, no melena, no nausea, no vomiting - Genitourinary Genitourinary: no change in urinary stream, no dysuria, no flank pain, no hematuria - Musculoskeletal Musculoskeletal ROS IM: no numbness, no tingling - Integumentary Integumentary IM: no rash, no unusual bruising - Neurological Neurological ROS: no confusion, no convulsions, no focal weakness, no numbness, no tingling, no tremor(s) - Constitutional Vitals: Temp Pulse Resp BP Pulse Ox 97.7 F 69 18 100/53 100 01/21/19 14:35 01/21/19 14:35 01/21/19 14:35 01/21/19 14:35 01/21/19 14:35 Exam: Skin: Free of rash and discoloration. Eyes: Sclera is white. There is no discharge from eyes. ENMT: Oral/pharyngeal mucosa is normal in appearance. There is no discharge from nose or ears. Respiratory: Normal breath sounds with no crackles and wheezes bilaterally. CV: Heart is regular with no gallop or murmur. GI: Abdomen is flat and soft with no palpable mass or visceromegaly. : There is no tenderness in patient's flanks bilaterally. Neuro exam: He has good strength in upper and lower extremities. He has normal eye movements. Psychiatric: He has normal affect. His thought process is appropriate to the situation. Internal Med - H&P Results - Impressions ITS Impressions Chest X-Ray 01/21/19 11:00 IMPRESSION: Unchanged appearance of the chest without acute airspace disease identified. D/ / Terence Pemberton / Terence Pemberton Interpreting Provider: Terence Pemberton - Assessment and Plan (1) Esophageal obstruction due to food impaction Current Visit: Yes Status: Acute Assessment and plan: Patient presented eating a pork chop and unable to swallow or tolerate oral intake. She felt as if something was lodged in her throat and was able to s wallow saliva/liquids or solids. This continued for approximately 24 hours until she presented to [facility] ED. Evaluated by GI and underwent EGD March fluid bolus removed from middle and third of esophagus and the lower third of the esophagus. Removal was successful. Patient will be sent home on PPI 20 mg a day for one week Follow-up with GI as outpatient for possible esophageal dilatation 1 scant reflexes returned Will attempt clear liquid and advance to soft diet. Patient will be on soft diet until evaluated by GI after discharge (2) COPD (chronic obstructive pulmonary disease) with emphysema Current Visit: No Status: Chronic Assessment and plan: Patient history of COPD with oxygen 2 L nasal cannula as needed. Currently does not appear to be in any exacerbation We will monitor SPO2 closely Qualifiers: Emphysema type: centrilobular Qualified Code(s): J43.2 - Centrilobular emphysema (3) HTN (hypertension) Current Visit: No Status: Chronic Assessment and plan: Currently stable Qualifiers: Hypertension type: essential hypertension Qualified Code(s): I10 - Essential (primary) hypertension (4) Tobacco abuse Current Visit: No Status: Chronic Assessment and plan: Patient currently smokes e-cigarette advised patient to stop smoking - Time Spent With Patient Total time spent is greater than 50% in coordination of care (as documented) at patient's floor/unit and/or counseling patient: - VTE Reasons for not Prescribing Prophylaxis: Treatment not Indicated - Low risk for VTE
--- NOTE | 2019-01-21 16:37 | Discharge Summary ---
- NOTES TO OUTPATIENT PROVIDER Notes to Outpatient Provider: Patient is to follow-up with GI as outpatient she is to continue Prilosec 20 mg daily for one week . Soft diet until evaluated by GI Orders not resulted at time of discharge: Pending orders 01/21/19 11:00 ECG 12 lead ECG [ECG] Stat 01/21/19 13:59 Surgical Pathology [PTH] Routine Date of Encounter: 01/21/19 Time of Encounter: 16:35 - Discharge Diagnosis (1) Esophageal obstruction due to food impaction Priority: Primary Status: Acute (2) COPD (chronic obstructive pulmonary disease) with emphysema Priority: Secondary Status: Chronic Qualifiers: Emphysema type: centrilobular Qualified Code(s): J43.2 - Centrilobular emphysema (3) HTN (hypertension) Priority: Secondary Status: Chronic Qualifiers: Hypertension type: essential hypertension Qualified Code(s): I10 - Essential (primary) hypertension (4) Tobacco abuse Priority: Secondary Status: Chronic Hospital course: Ms. Jones is a 83 year old female past medical history of hypertension COPD on 2 L nasal cannula as needed recurrent UTIs straight cast 2 times a day due to inability to empty her bladder hiatal hernia current smoker. Patient states that around noon yesterday she was eating a pork chop became lodged in her throat and she was unable to swallow. She attempted to force it down with water however a meal he vomited this back up. She was unable to tolerate any oral intake and was unable to even swallow her saliva. She states this has never happened before however she has had multiple EGDs in the past and she knows that she does have a hiatal hernia. Denies any past episodes of difficulty swallowing or choking She denies any chest pain she has chronic shortness of breath due to COPD. She presented to [facility] ED with the above complaints-chest x- ray without acute airspace disease GI was consult it and patient underwent urgent EGD. A large food bolus was removed from the middle and lower third of the esophagus completely blocking the esophagus. Removal was successful normal mucosa was found to be entire esophagus small hiatal hernia. GI recommending daily PPI 20 mg a day for one week and follow-up with GI as outpatient. Patient tolerated clear diet and advance to soft diet. Vital signs were stable advised patient to follow-up with primary care provider as well as GI. She is ready for discharge at this time. - Time Spent with Patient Total time spent providing and/or coordinating discharge services: - Discharge Medications Prescriptions: New Omeprazole [PriLOSEC] 20 mg PO DAILY 7 Days #7 cap No Action hydroCHLOROthiazide [Hydrochlorothiazide] 12.5 mg PO DAILY Estrogens, Conjugated [Premarin Cream] 1 appl VG 2XW Cetirizine HCl [Zyrtec] 10 mg PO DAILY #4 capsule Atenolol [Tenormin] 25 mg PO DAILY ALPRAZolam [Xanax 0.5 MG Tablet] 0.5 mg PO TID Cyclobenzaprine [Flexeril] 10 mg PO TID Simvastatin [Zocor] 20 mg PO HS Aspirin 325 mg PO DAILY Omeprazole [PriLOSEC] 20 mg PO DAILY Dorzolamide/Timolol [Cosopt] 1 drop LEFT EYE BID Brimonidine 0.2% [Alphagan] 1 drop BOTH EYES BID Latanoprost [Xalatan] 1 drop BOTH EYES HS Home Medications: ALPRAZolam [Xanax 0.5 MG Tablet] 0.5 mg PO TID 09/04/15 [History] Aspirin 325 mg PO DAILY 09/04/15 [History] Atenolol [Tenormin] 25 mg PO DAILY 09/04/15 [History] Brimonidine 0.2% [Alphagan] 1 drop BOTH EYES BID 09/04/15 [History] Cyclobenzaprine [Flexeril] 10 mg PO TID 09/04/15 [History] Dorzolamide/Timolol [Cosopt] 1 drop LEFT EYE BID 09/04/15 [History] Latanoprost [Xalatan] 1 drop BOTH EYES HS 09/04/15 [History] Omeprazole [PriLOSEC] 20 mg PO DAILY 09/04/15 [History] Simvastatin [Zocor] 20 mg PO HS 09/04/15 [History] Estrogens, Conjugated [Premarin Cream] 1 appl VG 2XW 06/21/17 [History] hydroCHLOROthiazide [Hydrochlorothiazide] 12.5 mg PO DAILY 06/21/17 [History] Cetirizine HCl [Zyrtec] 10 mg PO DAILY #4 capsule 04/29/18 [Rx] Omeprazole [PriLOSEC] 20 mg PO DAILY 7 Days #7 cap 01/21/19 [Rx] Allergies/Adverse Reactions: Allergy/AdvReac Type Severity Reaction Status Date / Time Sulfa (Sulfonamide Allergy Hives Verified 12/16/18 10:09 Antibiotics) Penicillins AdvReac Redness of Verified 12/16/18 10:09 Skin prednisone AdvReac Watery Eye Verified 12/16/18 10:09 Date of admission: 01/21/19 14:19 Primary care physician: PCP NONE Discharging clinician: Caitie Buckley Anticipated date of discharge: 01/21/19 - Constitutional Vitals: Temp Pulse Resp BP Pulse Ox 97.7 F 69 18 100/53 100 01/21/19 14:35 01/21/19 14:35 01/21/19 14:35 01/21/19 14:35 01/21/19 14:35 Exam: Skin: Free of rash and discoloration. Eyes: Sclera is white. There is no discharge from eyes. ENMT: Oral/pharyngeal mucosa is normal in appearance. There is no discharge from nose or ears. Respiratory: Normal breath sounds with no crackles and wheezes bilaterally. CV: Heart is regular with no gallop or murmur. GI: Abdomen is flat and soft with no palpable mass or visceromegaly. : There is no tenderness in patient's flanks bilaterally. Neuro exam: He has good strength in upper and lower extremities. He has normal eye movements. Psychiatric: He has normal affect. His thought process is appropriate to the situation. - Patient Status Disposition: Home, Self-Care Condition: Good Functional capacity at discharge: independent ambulation Overall status at discharge: patient is back to baseline - Discharge Instructions Follow Up With: NONE,PCP [Primary Care Provider] - Additional Instructions: SOFT DIET NO MEAT - Diet and Activity Activity: increase activity as tolerated Diet: other - VTE Reasons for not Prescribing Prophylaxis: Treatment not Indicated - Low risk for VTE
[2019-01-21 16:56] VITALS: BP 119/67
--- NOTE | 2019-01-25 09:39 | Electrocardiograph Report ---
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
== END 2019-01-21 18:54 | disposition home or self-care (01) ==
LOC: 3BNU 10:40 → EMEROOARM 10:40 → 3BNU 12:44
PROVIDERS: ADMIT Internal Medicine Nephrology; ATTEND Internal Medicine Nephrology
PROC: ENDOEFB (2019-01-21 12:30)

== ENCOUNTER 2019-11-09 16:13 | Observation (INO) ==
[~2019-11-09 16:13] MED LIST: Insulin LISPRO 300 UNITS/3 ML VIAL SQ SCH
[2019-11-09] MEDS ORDERED: Ipratropium/Albuterol Neb 3 ML IH ONE (16:36)
[2019-11-09 17:06] LABS: Basophils % 0.2 %; Eosinophils # 0.2 K/mcL (0.0-0.6); Eosinophils % 0.7 %; Hematocrit 43.7 % (35.3-44.9); Hemoglobin 14.1 g/dL (11.5-15.4); Immature Granulocytes % 0.8 % (0-4); Lymphocytes # 0.8 K/mcL (0.6-4.6); Lymphocytes % 3.6 %; Mean Corpuscular HGB Conc 32.3 g/dL (31.6-35.5); Mean Corpuscular Volume 89.9 fL (83.0-100.0); Mean Platelet Volume 11.2 fL (9.4-12.4); Monocytes # 1.7 K/mcL (0.0-1.3); Monocytes % 7.8 %; Neutrophils # 19.3 K/mcL (1.6-8.9); Platelet Count 230 K/mcL (140-400); Red Blood Count 4.86 M/mcL (3.82-4.97); Red Cell Distribution Width 13.5 % (11.5-14.5); Segmented Neutrophils % 86.9 %; White Blood Count 22.2 K/mcL (4.3-11.1)
[2019-11-09 17:09] LABS: BUN/Creatinine Ratio 16 (6-26); Blood Urea Nitrogen 20 mg/dL (8-23); Calcium 9.2 mg/dL (8.6-10.3); Carbon Dioxide 26 mEq/L (23-29); Chloride 103 mEq/L (98-107); Glucose 129 mg/dL (70-105); Osmolality,Calculated 288 (280-300); Potassium 3.1 mEq/L (3.5-5.1); Sodium 137 mEq/L (136-145); eGFR For African Americans 49 (> 60); eGFR For Non-African Americans 40 (> 60)
[2019-11-09 17:12] LABS: Troponin I < 0.03 ng/mL (< 0.04)
[2019-11-09] MEDS ORDERED: Azithromycin 250 MG TABLET PO ONE (19:05)
[2019-11-09] MEDS ORDERED: levoFLOXacin 750 MG/150 ML 750 MG/150 ML BAG IVPB ONE (19:05)
[2019-11-09] MEDS ORDERED: D5% in Water 1,000 ML IVC PRN (21:49)
[2019-11-09] MEDS ORDERED: *HR* Dextrose 50 % in Water (Syg) 50 ML SYRINGE IVP PRN (21:49)
[2019-11-09] MEDS ORDERED: Dextrose Gel 15 GM/37.5 ML TUBE PO PRN ×2 (21:49)
[2019-11-09] MEDS ORDERED: FLU Vac QV 19-20 (6Month+)/PF 0.5 ML SYRINGE IM ONE (22:05)
[2019-11-09] MEDS: Ipratropium/Albuterol Neb 3 ML IH SCH (23:34)
[2019-11-10 02:51] LABS: Basophils % 0.1 %; Eosinophils % 0.1 %; Hematocrit 38.5 % (35.3-44.9); Immature Granulocytes % 0.6 % (0-4); Lymphocytes # 0.6 K/mcL (0.6-4.6); Lymphocytes % 3.3 %; Mean Corpuscular HGB Conc 31.7 g/dL (31.6-35.5); Mean Corpuscular Hemoglobin 29.2 pg (28.0-33.3); Mean Corpuscular Volume 92.1 fL (83.0-100.0); Mean Platelet Volume 11.4 fL (9.4-12.4); Monocytes # 0.9 K/mcL (0.0-1.3); Monocytes % 4.9 %; Neutrophils # 17.1 K/mcL (1.6-8.9); Platelet Count 194 K/mcL (140-400); Red Blood Count 4.18 M/mcL (3.82-4.97); Red Cell Distribution Width 13.5 % (11.5-14.5); White Blood Count 18.7 K/mcL (4.3-11.1)
[2019-11-10 02:52] LABS: Hemoglobin 12.2 g/dL (11.5-15.4)
[2019-11-10 02:59] LABS: Calcium 8.8 mg/dL (8.6-10.3)
[2019-11-10] MEDS: ALPRAZolam 0.5 MG TABLET PO SCH ×4 (03:32→20:37)
[2019-11-10] MEDS: *HR* Heparin 5,000 UNIT/ML VIAL SQ SCH ×4 (03:33→20:37)
[2019-11-10] MEDS: Ipratropium/Albuterol Neb 3 ML IH SCH ×6 (04:00→23:11)
[2019-11-10] MEDS ORDERED: MethylPREDNISolone 40 MG/ML VIAL IVP SCH ×2 (09:00)
[2019-11-10] MEDS: Insulin LISPRO 300 UNITS/3 ML VIAL SQ SCH ×3 (09:39→17:06)
[2019-11-10] MEDS: hydroCHLOROthiazide 25 MG TABLET PO SCH (09:40)
[2019-11-10] MEDS: Aspirin 325 MG TABLET PO SCH (09:40)
[2019-11-10] MEDS: Dorzolamide/Timolol OPTH 10 ML BOTTLE BOTH EYES SCH ×2 (09:41→20:36)
[2019-11-10] MEDS: cefTRIAXone 1,000 MG in Water for inj. (sterile) 10 ML IVP SCH (09:44)
[2019-11-10] MEDS: Azithromycin 500 MG in 0.9 % Sodium Chloride 250 ML IVPB SCH (09:45)
[2019-11-10] MEDS ORDERED: Ringers Solution, Lactated 1,000 ML IVC ONE (12:03)
[2019-11-10] MEDS: Latanoprost 2.5 ML BOTTLE BOTH EYES SCH (20:37)
[2019-11-11] MEDS: Ipratropium/Albuterol Neb 3 ML IH SCH ×6 (04:42→23:25)
[2019-11-11 06:20] LABS: Hematocrit 34.3 % (35.3-44.9); Mean Corpuscular HGB Conc 32.1 g/dL (31.6-35.5); Mean Corpuscular Hemoglobin 29.5 pg (28.0-33.3); Mean Platelet Volume 11.6 fL (9.4-12.4); Platelet Count 204 K/mcL (140-400); Red Blood Count 3.73 M/mcL (3.82-4.97); Red Cell Distribution Width 13.7 % (11.5-14.5); White Blood Count 18.6 K/mcL (4.3-11.1)
[2019-11-11 06:43] LABS: Calcium 9.2 mg/dL (8.6-10.3); Potassium 3.5 mEq/L (3.5-5.1)
[2019-11-11] MEDS: Dorzolamide/Timolol OPTH 10 ML BOTTLE BOTH EYES SCH ×2 (09:17→21:30)
[2019-11-11] MEDS: Insulin LISPRO 300 UNITS/3 ML VIAL SQ SCH ×3 (09:18→15:57)
[2019-11-11] MEDS: ALPRAZolam 0.5 MG TABLET PO SCH ×3 (09:19→21:29)
[2019-11-11] MEDS: Aspirin 325 MG TABLET PO SCH (09:19)
[2019-11-11] MEDS: predniSONE 20 MG TABLET PO SCH (09:19)
[2019-11-11] MEDS: hydroCHLOROthiazide 25 MG TABLET PO SCH (09:19)
[2019-11-11] MEDS: Azithromycin 500 MG in 0.9 % Sodium Chloride 250 ML IVPB SCH (09:21)
[2019-11-11] MEDS: cefTRIAXone 1,000 MG in Water for inj. (sterile) 10 ML IVP SCH (09:22)
[2019-11-11] MEDS: *HR* Heparin 5,000 UNIT/ML VIAL SQ SCH ×3 (09:32→21:30)
[2019-11-11] MEDS: Latanoprost 2.5 ML BOTTLE BOTH EYES SCH (21:30)
[2019-11-11] MEDS ORDERED: Patient Taking Own Medication 1 EACH PO SCH (21:52)
[2019-11-11] MEDS ORDERED: RHOPRESSA OP SCH (22:07)
[2019-11-12] MEDS: Ipratropium/Albuterol Neb 3 ML IH SCH ×3 (04:02→11:31)
[2019-11-12] MEDS: *HR* Heparin 5,000 UNIT/ML VIAL SQ SCH ×2 (05:59→13:52)
[2019-11-12 06:53] LABS: Hematocrit 35.5 % (35.3-44.9); Hemoglobin 11.5 g/dL (11.5-15.4); Mean Corpuscular HGB Conc 32.4 g/dL (31.6-35.5); Mean Corpuscular Volume 89.4 fL (83.0-100.0); Platelet Count 251 K/mcL (140-400); Red Blood Count 3.97 M/mcL (3.82-4.97); Red Cell Distribution Width 13.9 % (11.5-14.5); White Blood Count 16.2 K/mcL (4.3-11.1)
[2019-11-12 07:11] LABS: Calcium 8.8 mg/dL (8.6-10.3); Potassium 3.4 mEq/L (3.5-5.1)
[2019-11-12] MEDS ORDERED: Ringers Solution, Lactated 1,000 ML IVC ONE (07:45)
[2019-11-12] MEDS: Dorzolamide/Timolol OPTH 10 ML BOTTLE BOTH EYES SCH (08:01)
[2019-11-12] MEDS: Insulin LISPRO 300 UNITS/3 ML VIAL SQ SCH ×2 (08:02→11:36)
[2019-11-12] MEDS: hydroCHLOROthiazide 25 MG TABLET PO SCH (08:03)
[2019-11-12] MEDS: Aspirin 325 MG TABLET PO SCH (08:03)
[2019-11-12] MEDS: predniSONE 20 MG TABLET PO SCH (08:04)
[2019-11-12] MEDS: cefTRIAXone 1,000 MG in Water for inj. (sterile) 10 ML IVP SCH (08:04)
[2019-11-12] MEDS: ALPRAZolam 0.5 MG TABLET PO SCH ×2 (08:05→13:51)
[2019-11-12] MEDS: Azithromycin 500 MG in 0.9 % Sodium Chloride 250 ML IVPB SCH (08:09)
[2019-11-12 12:03] LABS: Bilirubin,Urine Negative (Negative); Blood,Urine Negative (Negative); Clarity,Urine Cloudy (Clear); Color,Urine Yellow (Yellow); Glucose,Urine (UA) Normal (Normal); Ketones,Urine Negative (Negative); Leukocyte Esterase,Urine Trace (Negative); Nitrite,Urine Negative (Negative); Protein,Urine Negative (Neg-Trace); Specific Gravity,Urine 1.017 (1.010-1.025); Urobilinogen,Urine Normal (Normal)
[2019-11-12 12:06] LABS: Bacteria,Urine None Seen per hpf (None-Few); Squamous Epithelial Cell,Urine Many per lpf (None-Few)
[2019-11-12 14:26] LABS: Calcium 9.1 mg/dL (8.6-10.3); Potassium 3.6 mEq/L (3.5-5.1)
[2019-11-12 14:44] VITALS: BP 132/58
== END 2019-11-12 15:32 | disposition home or self-care (01) ==
LOC: EMEROOARM 16:13 → 3ANU 16:13
PROVIDERS: ADMIT Internal Medicine; ATTEND Internal Medicine

== ENCOUNTER 2019-11-27 17:18 | Observation (INO) ==
[2019-11-27 18:47] LABS: Basophils # 0.1 K/mcL (0.0-0.2); Basophils % 0.4 %; Eosinophils # 0.2 K/mcL (0.0-0.6); Eosinophils % 1.5 %; Hemoglobin 11.9 g/dL (11.5-15.4); Immature Granulocytes % 0.4 % (0-4); Lymphocytes % 9.2 %; Mean Corpuscular HGB Conc 31.3 g/dL (31.6-35.5); Mean Corpuscular Hemoglobin 28.6 pg (28.0-33.3); Mean Corpuscular Volume 91.3 fL (83.0-100.0); Monocytes # 0.9 K/mcL (0.0-1.3); Monocytes % 7.6 %; Neutrophils # 9.1 K/mcL (1.6-8.9); Platelet Count 271 K/mcL (140-400); Red Blood Count 4.16 M/mcL (3.82-4.97); Red Cell Distribution Width 14.4 % (11.5-14.5); Segmented Neutrophils % 80.9 %; White Blood Count 11.3 K/mcL (4.3-11.1)
[2019-11-27 18:53] LABS: Bilirubin,Urine Negative (Negative); Blood,Urine Small (Negative); Clarity,Urine Turbid (Clear); Glucose,Urine (UA) Normal (Normal); Ketones,Urine Negative (Negative); Leukocyte Esterase,Urine Large (Negative); Nitrite,Urine Positive (Negative); Protein,Urine 30 mg/dL (Neg-Trace); Specific Gravity,Urine 1.018 (1.010-1.025); Urobilinogen,Urine Normal (Normal)
[2019-11-27 19:07] LABS: Color,Urine Yellow (Yellow)
[2019-11-27 19:10] LABS: Calcium 8.9 mg/dL (8.6-10.3); Magnesium 1.9 mg/dL (1.6-2.6); Phosphorous 3.3 mg/dL (2.7-4.5); Potassium 4.4 mEq/L (3.5-5.1)
[2019-11-27 19:24] LABS: Bacteria,Urine Moderate per hpf (None-Few); Squamous Epithelial Cell,Urine Few per lpf (None-Few); WBC,Urine TNTC per hpf (0-3)
[2019-11-27 19:25] LABS: Mucus,Urine Few per lpf (Few)
[2019-11-27] MEDS ORDERED: cefTRIAXone 1,000 MG in Water for inj. (sterile) 10 ML IVP ONE (20:02)
[2019-11-27] MEDS ORDERED: Naloxone 0.4 MG/ML INJ IVP PRN (22:45)
[2019-11-27] MEDS ORDERED: 0.9 % Sodium Chloride 1,000 ML IVC ONE (22:47)
[2019-11-28] MEDS ORDERED: Nicotine 21 MG PATCH.TD24 TD PRN (00:44)
[2019-11-28] MEDS ORDERED: levoFLOXacin 750 MG/150 ML 750 MG/150 ML BAG IVPB SCH (00:45)
[2019-11-28] MEDS: *HR* Heparin 5,000 UNIT/ML VIAL SQ SCH ×2 (05:05→18:00)
[2019-11-28 05:30] LABS: Hematocrit 35.4 % (35.3-44.9); Mean Corpuscular HGB Conc 31.1 g/dL (31.6-35.5); Mean Corpuscular Volume 93.4 fL (83.0-100.0); Mean Platelet Volume 10.7 fL (9.4-12.4); Platelet Count 220 K/mcL (140-400); Red Blood Count 3.79 M/mcL (3.82-4.97); Red Cell Distribution Width 14.6 % (11.5-14.5); White Blood Count 10.2 K/mcL (4.3-11.1)
[2019-11-28 05:57] LABS: BUN/Creatinine Ratio 22 (6-26); Blood Urea Nitrogen 23 mg/dL (8-23); Calcium 8.6 mg/dL (8.6-10.3); Carbon Dioxide 22 mEq/L (23-29); Chloride 112 mEq/L (98-107); Glucose 83 mg/dL (70-105); Osmolality,Calculated 299 (280-300); Potassium 3.8 mEq/L (3.5-5.1); Sodium 143 mEq/L (136-145); eGFR For African Americans > 60 (> 60); eGFR For Non-African Americans 50 (> 60)
[2019-11-28] MEDS ORDERED: cefTRIAXone 1,000 MG in Water for inj. (sterile) 10 ML IVP SCH (09:00)
[2019-11-28] MEDS ORDERED: ALPRAZolam 0.5 MG TABLET PO PRN (10:46)
[2019-11-28] MEDS: Dorzolamide/Timolol OPTH 10 ML BOTTLE BOTH EYES SCH ×2 (11:59→20:46)
[2019-11-28] MEDS: BuPROPion SR (12 HR) 150 MG TABLET PO SCH (12:00)
[2019-11-28] MEDS ORDERED: Aminoglycoside Consult 1 EACH MC ONE (16:06)
[2019-11-28] MEDS ORDERED: (Netarsudil Mesylate [Rhopressa] 1 DROP) OP SCH (21:00)
[2019-11-28] MEDS ORDERED: Latanoprost 2.5 ML BOTTLE BOTH EYES SCH (21:00)
[2019-11-29] MEDS: *HR* Heparin 5,000 UNIT/ML VIAL SQ SCH (05:03)
[2019-11-29 06:39] LABS: Basophils % 0.5 %; Eosinophils # 0.2 K/mcL (0.0-0.6); Eosinophils % 2.7 %; Immature Granulocytes % 0.4 % (0-4); Lymphocytes # 1.1 K/mcL (0.6-4.6); Lymphocytes % 13.3 %; Mean Corpuscular HGB Conc 31.4 g/dL (31.6-35.5); Mean Corpuscular Hemoglobin 29.2 pg (28.0-33.3); Mean Corpuscular Volume 92.8 fL (83.0-100.0); Mean Platelet Volume 10.8 fL (9.4-12.4); Monocytes # 0.5 K/mcL (0.0-1.3); Monocytes % 6.7 %; Platelet Count 245 K/mcL (140-400); Red Blood Count 3.77 M/mcL (3.82-4.97); Red Cell Distribution Width 14.4 % (11.5-14.5); Segmented Neutrophils % 76.4 %; White Blood Count 7.9 K/mcL (4.3-11.1)
[2019-11-29 06:56] LABS: Calcium 8.6 mg/dL (8.6-10.3); Potassium 3.8 mEq/L (3.5-5.1)
[2019-11-29] MEDS ORDERED: Aspirin Enteric Coated 81 MG Tablet PO SCH (09:00)
[2019-11-29] MEDS: Dorzolamide/Timolol OPTH 10 ML BOTTLE BOTH EYES SCH (09:19)
[2019-11-29] MEDS: BuPROPion SR (12 HR) 150 MG TABLET PO SCH (09:19)
[2019-11-29] MEDS ORDERED: Doxycycline 100 MG CAPSULE PO SCH (09:45)
[2019-11-29] MEDS ORDERED: Tiotropium 18 MCG inhalation IH SCH (10:00)
[2019-11-29 11:53] VITALS: BP 130/75
[2019-11-30] MEDS ORDERED: levoFLOXacin 750 MG/150 ML 750 MG/150 ML BAG IVPB SCH (01:00)
== END 2019-11-29 16:07 | disposition home health service (06) ==
LOC: 3ANU 17:18 → EMEROOARM 17:18 → 3ANU 22:42
PROVIDERS: ADMIT Internal Medicine; ATTEND Internal Medicine